=== PATIENT | female | born 1960 | race Caucasian/White ===

== ENCOUNTER 2019-09-25 07:30 | Day surgery (SDC) | payer OTHER ==
[2019-09-25] MEDS ORDERED: Lactated Ringers 1,000 ML IV SCH ×2 (08:00→11:15)
[2019-09-25] MEDS ORDERED: Propofol 200 MG/20 ML SDV ONE ×3 (09:44→11:02)
[2019-09-25] MEDS ORDERED: Midazolam 1 MG/ML 2 ML SDV ONE (09:44)
[2019-09-25] MEDS ORDERED: fentaNYL 100 MCG/2 ML SDV ONE (09:44)
--- NOTE | 2019-09-25 09:48 | PCM.PREANE ---
Preanesthetic Assessment - Anesthesia/Transfusion/Family Hx Anesthesia History: Prior Anesthesia Without Reaction Family History of Anesthesia Reaction: No Transfusion History: No Prior Transfusion(s) - Review of Systems General: No Symptoms Pulmonary: No Symptoms Cardiovascular: No Symptoms Gastrointestinal: No Symptoms Neurological: No Symptoms Other: Reports: None - Physical Assessment NPO Status Date: 09/24/19 Height: 5 ft 4 in Weight: 99.79 kg ASA Class: 2 Mental Status: Alert & Oriented x3 Dentition: Reports: Dentures (upper) ROM/Head Extension: Full Lungs: Clear to Auscultation, Normal Respiratory Effort Cardiovascular: Regular Rate, Regular Rhythm - Allergies Allergies/Adverse Reactions: Allergies Allergy/AdvReac Type Severity Reaction Status Date / Time No Known Allergies Allergy Verified 09/21/19 15:33 - Blood Blood Available: No - Anesthesia Plan Pre-Op Medication Ordered: None - Acknowledgements Anesthesia Type Planned: General Anesthesia Pt an Appropriate Candidate for the Planned Anesthesia: Yes Alternatives and Risks of Anesthesia Discussed w Pt/Guardian: Yes Pt/Guardian Understands and Agrees with Anesthesia Plan: Yes PreAnesthesia Questionnaire HEENT History: Reports: Other (See Below) Other HEENT History: reading glasses, top denture Cardiovascular History: Reports: High Cholesterol Respiratory History: Reports: None Gastrointestinal History: Reports: None Genitourinary History: Reports: Renal Calculus [employer]PERATOR History: Reports: Musculoskeletal History: Reports: Osteoarthritis Neurological History: Reports: None Psychiatric History: Reports: Anxiety Endocrine/Metabolic History: Reports: Hypothyroidism, Obesity/BMI 30+ Hematologic History: Reports: None Immunologic History: Reports: None Oncologic (Cancer) History: Reports: Uterine Dermatologic History: Reports: None - Past Surgical History Head Surgeries/Procedures: Reports: None HEENT Surgical History: Reports: Eye Surgery, Naso-Sinus Surgery Cardiovascular Surgical History: Reports: None Respiratory Surgical History: Reports: None GI Surgical History: Reports: None Female Surgical History: Reports: Breast Biopsy, Section, Hysterectomy, Salpingo-Oophorectomy Endocrine Surgical History: Reports: None Neurological Surgical History: Reports: None Musculoskeletal Surgical History: Reports: Hip Replacement Other Musculoskeletal Surgeries/Procedures:: left EFRAÍN Oncologic Surgical History: Reports: Biopsy of Breast, Other (See Below) Other Oncologic Surgeries/Procedures: hysterectomy for uterine cancer Dermatological Surgical History: Reports: None - SUBSTANCE USE Smoking Status *Q: Former Smoker Tobacco Use Within Last Twelve Months: No Recreational Drug Use History: Yes - HOME MEDS Home Medications: Home Meds Acetaminophen [Tylenol Arthritis] 2 tab PO DAILY 09/21/19 [History] Cholecalciferol (Vitamin D3) [Vitamin D3] 2 tab PO DAILY 09/21/19 [History] Dalerian Root 1 tab PO DAILY 09/21/19 [History] Green Tea [place] Extract [Green Tea Extract] 630 mg PO DAILY 09/21/19 [History] Levothyroxine Sodium [Unithroid] 150 mcg PO DAILY 09/21/19 [History] Lutein/Minerals/Vit A,C & E [Ocuvite] 1 tab PO DAILY 09/21/19 [History] Magnesium Oxide [Magnesium] 400 mg PO DAILY 09/21/19 [History] Multivit-Min/Iron/Folic/Lutein [Centrum Silver Women Tablet] 1 tab PO DAILY 08/06 [History] Sertraline HCl 150 mg PO DAILY 09/21/19 [History] Simvastatin 40 mg PO DAILY 09/21/19 [History] Turmeric Root Extract [Turmeric] 1 tab PO DAILY 09/21/19 [History] - CURRENT (IN HOUSE) MEDS Current Meds: Current Medications Lactated Ringer's (Ringers, Lactated) 1,000 mls @ 125 mls/hr IV ASDIRECTED SEAN Discontinued Medications Fentanyl (Sublimaze) Confirm Administered Dose 100 mcg .ROUTE .STK-MED ONE Stop: 09/25/19 09:45 Lidocaine HCl (Xylocaine-Mpf 1%) Confirm Administered Dose 5 ml .ROUTE .STK-MED ONE Stop: 09/25/19 09:45 Midazolam HCl (Versed 1 Mg/Ml) Confirm Administered Dose 2 mg .ROUTE .STK-MED ONE Stop: 09/25/19 09:45 Propofol (Diprivan 20 Ml) Confirm Administered Dose 200 mg .ROUTE .STK-MED ONE Stop: 09/25/19 09:45
--- NOTE | 2019-09-25 11:17 | PCM.OPNOTE ---
- General Post-Op/Procedure Note Date of Surgery/Procedure: 09/25/19 Operative Procedure(s): Colonoscopy with cold ascending colon, proximal transverse and mid transverse colon, polypectomies Pre Op Diagnosis: Positive Cologuard test. Post-Op Diagnosis: Ascending colon, proximal and mid transverse colon polyps Anesthesia Technique: MAC (ASA II) Primary Surgeon: Saúl Bauman Condition: Good Free Text/Narrative:: DICTATION 144678 CPT CODE 19813
--- NOTE | 2019-09-25 11:22 | PCM48HPAN ---
Post Anesthesia Note - EVALUATION WITHIN 48HRS OF ANESTHETIC Vital Signs in Normal Range: Yes Patient Participated in Evaluation: Yes Respiratory Function Stable: Yes Airway Patent: Yes Cardiovascular Function Stable: Yes Hydration Status Stable: Yes Pain Control Satisfactory: Yes Nausea and Vomiting Control Satisfactory: Yes Mental Status Recovered: Yes Vital Signs: Last Vital Signs Temp 96.8 F L 09/25/19 11:14 Pulse 75 09/25/19 11:19 Resp 13 09/25/19 11:19 BP 102/59 L 09/25/19 11:19 Pulse Ox 97 09/25/19 11:19
--- NOTE | 2019-09-25 11:22 | PCM.POSTAN ---
POST ANESTHESIA ASSESSMENT - MENTAL STATUS Mental Status: Alert, Oriented - VITAL SIGNS Vital Signs: Last Vital Signs Temp 96.8 F L 09/25/19 11:14 Pulse 75 09/25/19 11:14 Resp 16 09/25/19 11:14 BP 99/60 09/25/19 11:14 Pulse Ox 97 09/25/19 11:14 - RESPIRATORY Respiratory Status: Respiratory Rate WNL, Airway Patent, O2 Saturation Stable - CARDIOVASCULAR CV Status: Pulse Rate WNL, Blood Pressure Stable - GASTROINTESTINAL GI Status: No Symptoms - POST OP HYDRATION Hydration Status: Adequate & Stable
--- NOTE | 2019-09-25 14:19 | OR ---
SURGEON: Saúl Bauman M.D. DATE OF PROCEDURE: 09/25/2019 OPERATION PERFORMED: Colonoscopy with cold ascending colon, proximal transverse and mid transverse colon polypectomy. PRIMARY SURGEON: Saúl Bauman MD ANESTHESIA: MAC. ASA CLASSIFICATION: II. PREOPERATIVE DIAGNOSIS: Positive Cologuard test. POSTOPERATIVE DIAGNOSIS: Ascending colon, proximal transverse and mid transverse colon polyps. DESCRIPTION OF PROCEDURE: The patient was taken to the endoscopy room, positioned on the endoscopy table in the left lateral decubitus position. Time-out was called for appropriate identification of the patient and procedure. Monitored anesthesia care was provided. The colonoscope was inserted into the rectum and advanced with moderate difficulty to the cecum. I was able to retroflex the colonoscope in the cecum to visualize the ascending colon from below, then straightened and slowly withdrawn. Two small polyps were encountered in close proximity in the ascending colon and removed with cold biopsy forceps. The remainder of the ascending colon and hepatic flexure showed no tumors, polyps, or diverticula. One small polyp was encountered in the proximal transverse colon and another polyp encountered in the mid transverse colon. These were individually removed and sent for separate histologic analysis using the cold biopsy forceps. The remainder of the transverse colon, splenic flexure, descending colon, sigmoid colon, and rectum showed no tumors, polyps, diverticula, or angiodysplastic changes. Once the colonoscope was withdrawn to the rectum, it was retroflexed to visualize the anal orifice from above. No tumors or polyps were seen and there were no acute hemorrhoidal changes. The colonoscope was then straightened, the rectum aspirated, and the colonoscope removed. The patient tolerated the procedure well and was taken to recovery room in stable condition. AB / BOBBY /[id number]
== END 2019-09-25 12:14 | disposition home or self-care (01) ==
LOC: MW.SDS 07:30
PROVIDERS: ATTEND Surgery
DX: D12.3 Benign neoplasm of transverse colon (principal); D12.2 Benign neoplasm of ascending colon; E78.00 Pure hypercholesterolemia, unspecified; E03.9 Hypothyroidism, unspecified; E66.9 Obesity, unspecified; F41.9 Anxiety disorder, unspecified; Z87.891 Personal history of nicotine dependence; Z68.41 Body mass index [BMI] 40.0-44.9, adult; Z79.890 Hormone replacement therapy; Z79.899 Other long term (current) drug therapy; Z90.710 Acquired absence of both cervix and uterus
CPT/HCPCS: 45380; J2001; J2250; J2704; J3010; J7120; 00811; 88305